=== PATIENT | female | born 1995 | race Caucasian/White ===

== ENCOUNTER 2017-05-20 13:24 | Emergency (ER) | payer MEDICAID ==
[2017-05-20] MEDS: ONDANSETRON (ODT) 4 MG TAB ODT (15:09)
[2017-05-20] MEDS: DIPHENHYDRAMINE 25 MG CAP PO (15:09)
[2017-05-20] MEDS: KETOROLAC 30 MG INJ IM (15:10)
[2017-05-20 15:31] LABS: URINE PH (Dip) POC 7.5 (5.0-8.5)
[2017-05-20 15:31] LABS: URINE BLOOD (Dip) POC Trace-lysed (NEGATIVE); URINE GLUCOSE (Dip) POC Negative (NEGATIVE); URINE KETONES (Dip) POC Negative (NEGATIVE); URINE LEUKOCYTE EST (Dip) POC Trace (NEGATIVE); URINE NITRITE (Dip) POC Negative (NEGATIVE); URINE TOTAL PROTEIN POC Negative (NEGATIVE)
== END 2017-05-20 16:36 | disposition home or self-care (01) ==
LOC: FTE 13:24
DX: R51 Headache (principal)
CPT/HCPCS: 70450; 81003; 96372; 99285-25

== ENCOUNTER 2017-07-01 18:25 | Emergency (ER) | payer MEDICAID | END 2017-07-01 19:10 | disposition home or self-care (01) | LOC: E/R 18:25 | DX: R05 Cough (principal) | CPT/HCPCS: 99284; Z7502 ==